=== PATIENT | male | born 1960 | race Hispanic/Latino ===

== ENCOUNTER 2018-10-19 08:04 | Day surgery (SDC) | payer OTHER ==
[2018-10-18 12:27] VITALS: BMI 40.4
--- NOTE | 2018-10-19 11:31 | CP.SDSHP ---
Same Day Surgery H & P - History Proposed Procedure: colonoscopy Pre-Op Diagnosis: history of polyps - Previous Medical/Surgical History Cardiac: Hypertension Endocrine/Metabolic: Obesity - Allergies Allergies: Allergies No Known Allergies Allergy (Verified 10/19/18 08:30) - Physical Exam General Appearance: NAD Vital Signs: Vital Signs 10/19/18 08:37 Temperature 98.9 F Pulse Rate 77 Respiratory 19 Rate Blood Pressure 144/88 O2 Sat by Pulse 98 Oximetry Mental Status: Alert & Oriented x3 Neuro: WNL Heart: WNL Lungs: WNL GI: WNL - {Optional Preform as Required} Abdomen: WNL - Impression Pt. Evaluated Today:Candidate for Anesthesia & Procedure: Yes - Date & Time Date: 10/19/18 Time: 11:31 Short Stay Discharge - Short Stay Discharge Admitting Diagnosis/Reason for Visit: SCREENING Disposition: HOME/ ROUTINE
[2018-10-19] MEDS ORDERED: Lidocaine Hydrochloride 5 ML INJ ONE (11:32)
[2018-10-19] MEDS ORDERED: Propofol 10 mg/ml Inj (20 ML) ONE ×2 (11:32→11:47)
[2018-10-19] MEDS ORDERED: Lactated Ringer's 500 ML IV ONE ×2 (11:35)
[2018-10-19 12:25] VITALS: TEMP 99.1
[2018-10-19] MEDS ORDERED: Lactated Ringer's 500 ML IV SCH (12:30)
[2018-10-19 12:49] VITALS: BP 96/60; PULSE 82; RESP 12; O2SAT 97
== END 2018-10-19 13:00 | disposition home or self-care (01) ==
LOC: C.ENDO 08:04
PROVIDERS: ATTEND Internal Medicine Gastroenterology
DX: D12.5 Benign neoplasm of sigmoid colon (principal); K64.1 Second degree hemorrhoids; Z12.11 Encounter for screening for malignant neoplasm of colon; I10 Essential (primary) hypertension; E66.9 Obesity, unspecified
CPT/HCPCS: 45385; 88305; J2704; J3010; J7120